=== PATIENT | male | born 1965 | race African-American/Black ===

== ENCOUNTER 2017-04-24 17:30 | Emergency (ER) | payer OTHER ==
[~2017-04-24] VITALS: Ht 167.6 cm; Wt 72.6 kg
[~2017-04-24 17:30] MED LIST: IBUPROFEN600 MG ORAL
[2017-04-24 17:39] VITALS: BP 137/87
--- NOTE | 2017-04-24 18:20 | Emergency Room Report ---
History of Present Illness General Chief Complaint: Medication Refill Source: Patient Present Illness HPI 52 YO male presents to the ED c/o requiring medication refill for his chronic left sided sciatica, out of soma and Vicodin. doesn't have new pcp appt. until April 28. no change in character of his chronic symptoms. pt states he was previously seen by auto customize painter. Denies fevers, chills, new trauma or fall. Denies numbness tingling or loss of sensation or gross motor movements of the extremities, incontinence of bowel or bladder. Denies CP, Palpitations, LOC, AMS, dizziness, Changes in Vision, Sensation, paresthesias, or a sudden severe headache. Allergies: Coded Allergies: No Known Allergies (Unverified , 10/29/13) Patient History Past Medical History: see triage record Past Surgical History: none Pertinent Family History: none Reviewed Nursing Documentation: PMH: Agreed, PSxH: Agreed Nursing Documentation-PMH Past Medical History: No History, Except For Hx Cardiac Problems: No Hx Cancer: No Hx Gastrointestinal Problems: No Hx Neurological Problems: No Review of Systems All Other Systems: negative except mentioned in HPI Physical Exam Vital Signs Date Time Temp Pulse Resp B/P Pulse Ox O2 Delivery O2 Flow Rate FiO2 04/24/17 17:39 98.4 81 18 137/87 100 Room Air Sp02 EP Interpretation: reviewed, normal General Appearance: no apparent distress, alert, GCS 15, non-toxic Head: normocephalic, atraumatic Eyes: bilateral eye PERRL, bilateral eye normal inspection ENT: hearing grossly normal, normal pharynx, no angioedema, normal voice Neck: full range of motion, supple/symm/no masses Respiratory: lungs clear, normal breath sounds, speaking full sentences Cardiovascular #1: regular rate, rhythm Musculoskeletal: back normal, gait/station normal, normal range of motion, tender - bilateral lumbar paraspinal ttp, no midline ttp, ttp of bilateral upper glutes. left side is most prominent for symptoms Neurologic: alert, oriented x3, responsive, motor strength/tone normal, sensory intact, normal gait, speech normal, other - no evidence to suggest incontinence Psychiatric: judgement/insight normal, memory normal, mood/affect normal Skin: normal color, no rash, warm/dry, well hydrated Medical Decision Making PA Attestation Dr. Funes is my supervising Physician whom patient management has been discussed with. Diagnostic Impression: Primary Impression: Chronic back pain Qualified Codes: M54.42 - Lumbago with sciatica, left side; G89.29 - Other chronic pain Additional Impression: History of herniated intervertebral disc ER Course 52 YO male presents to the ED c/o requiring medication refill for his chronic left sided sciatica, out of soma and Vicodin. doesn't have new pcp appt. until April 28. no change in character of his chronic symptoms. pt states he was previously seen by auto customize painter. Denies fevers, chills, new trauma or fall. Denies numbness tingling or loss of sensation or gross motor movements of the extremities, incontinence of bowel or bladder. Denies CP, Palpitations, LOC, AMS, dizziness, Changes in Vision, Sensation, paresthesias, or a sudden severe headache. Ddx considered but are not limited to: drug seeking, OD, acute exacerbation of chronic pain, epidural abscess, spinal injury, Vital signs: are WNL, pt. is afebrile H&PE are most consistent with need for medication refill of chronic condition, with no changes in condition or new symptoms. ORDERS: none required at this time, the diagnosis is clinical ED INTERVENTIONS: -Toradol Im - I reviewed this pt. CURES report for the previous 6 months and noted that he only had 3 previous rx's for medications and did not regularly receive them monthly. d/w pt. that Medication refills for controlled substances for non-acute injuries is not routine for the ED, and suggested contacting previous auto customize painter. will rx mild muscle relaxer and anti-inflammatory medication to hold him over until his appt. in 3 days with his new PCP. I do not suspect an emergent condition at this time. with current presentation pt. is stable for close outpatient follow up. DISCHARGE: At this time pt. is stable for d/c to home. Will provide printed patient care instructions, and any necessary prescriptions. Care plan and follow up instructions have been discussed with the patient prior to discharge. Last Vital Signs Date Time Temp Pulse Resp B/P Pulse Ox O2 Delivery O2 Flow Rate FiO2 04/24/17 17:39 98.4 81 18 137/87 100 Room Air Disposition: HOME, SELF-CARE Condition: Stable Scripts Cyclobenzaprine Hcl* (FLEXERIL*) 10 Mg Tablet 10 MG ORAL THREE TIMES A DAY for 5 Days, #15 TAB Prov: Milena White 04/24/17 Acetaminophen (Tylenol) 325 Mg Tablet 650 MG ORAL Q6H, #20 TAB 0 Refills Prov: Milena White 04/24/17 Patient Instructions: Chronic Back Pain, Medicine Refill at the Emergency Department Additional Instructions: Take medications as directed. Contact your previous Pain management prescriber for partial refills if needed until your next primary card appt. Follow up with PCP in 3-5 days. Return sooner to ED if new symptoms occur, or current symptoms become worse. - Please note that this Emergency Department Report was dictated using [employer] technology software, occasionally this can lead to erroneous entry secondary to interpretation by the dictation equipment. Milena White Apr 24, 2017 18:20
[2017-04-24] MEDS ORDERED: CYCLOBENZAPRINE10 MG ORAL (18:21)
[2017-04-24] MEDS ORDERED: TYLENOL325 MG ORAL (18:21)
[2017-04-24] MEDS ORDERED: Ketorolac 60mg Inj IM ONE (18:30)
== END 2017-04-24 18:43 | disposition home or self-care (01) ==
LOC: EMR 18:35
DX: M54.42 Lumbago with sciatica, left side (principal)
CPT/HCPCS: 96372; 99284